=== PATIENT | male | born 1955 | race Two or more races ===

== ENCOUNTER 2022-04-13 19:19 | Emergency (ER) | payer SELFPAY ==
[~2022-04-13] VITALS: Ht 165.1 cm; Wt 86.0 kg
[2022-04-13] MEDS ORDERED: HYDROcodone/APAP 5/325MG 1 TAB TABLET PO ONE (20:15)
[2022-04-13] MEDS ORDERED: LIDOCAINE WITH 8.4% SOD BICARB 3 ML DISP.SYRIN. INJ ONE (20:15)
[2022-04-13 20:34] VITALS: BP 134/94
--- NOTE | 2022-04-13 20:37 | PHYS DOC ---
Past Medical History Past Surgical History: No Surgical History Smoking Status: Never Smoker Alcohol Use: Occasionally General Adult EDM: Chief Complaint: ANIMAL BITE HPI: HPI: Patient is a 66 year old male who presents to the ED today to be evaluated for dog bites on the right abdomen. Patient states he got bit by a dog in the neighborhood. He states during the attack he fell down. He is complaining of posterior head pain and low back pain. Rates the pain as mild and intermittent. Denies any neck pain. States the pain is exacerbated on certain movements of the low back as well as touching his posterior head. Denies any loss of consciousness. Animal control was notified as well as PD. Review of Systems: Review of Systems: constitutional: Denies fever or chills. [] Eyes: Denies change in visual acuity. [] HENT: Denies nasal congestion or sore throat. [] Respiratory: Denies cough or shortness of breath. [] Cardiovascular: Denies chest pain or edema. [] GI: Denies abdominal pain, nausea, vomiting, bloody stools or diarrhea. [] : Denies dysuria. [] Musculoskeletal: Reports low back pain Integument: Reports dog bites to the abdomen Neurologic: Reports posterior head pain denies headache, focal weakness or sensory changes. [] Psychiatric: Denies depression or anxiety. [] Heart Score: C/O Chest Pain: N/A Risk Factors: Risk Factors: DM, Current or recent (<one month) smoker, HTN, HLP, family histo ry of CAD, obesity. Risk Scores: Score 0 - 3: 2.5% MACE over next 6 weeks - Discharge Home Score 4 - 6: 20.3% MACE over next 6 weeks - Admit for Clinical Observation Score 7 - 10: 72.7% MACE over next 6 weeks - Early Invasive Strategies Current Medications: Current Medications Medications (Trade) Dose Ordered Sig/Raisa Start Time Stop Time Status Last Admin Dose Admin Acetaminophen/ Hydrocodone Bitart (Lortab 5/325) 1 tab 1X ONCE 04/13/22 20:15 04/13/22 20:24 DC 04/13/22 20:19 1 TAB Lidocaine HCl (Buffered Lidocaine 1%) 3 ml 1X ONCE 04/13/22 20:15 04/13/22 20:16 DC 04/13/22 20:19 3 ML Allergies: Allergies: Allergies Coded Allergies Type Severity Reaction Last Updated Verified No Known Drug Allergies 04/13/22 No Physical Exam: PE: Constitutional: Well developed, well nourished, no acute distress, non-toxic appearance. [] HENT: Normocephalic, atraumatic, bilateral external ears normal, oropharynx moist, no oral exudates, nose normal. [] Eyes: PERRLA, EOMI, conjunctiva normal, no discharge. [] Neck: Normal range of motion, no tenderness, supple, no stridor. [] Cardiovascular:Heart rate regular rhythm, no murmur [] Lungs & Thorax: Bilateral breath sounds clear to auscultation [] Abdomen: Bowel sounds normal, soft, no tenderness, no masses, no pulsatile masses. [] Skin: Right abdomen with multiple scratch belle, bruising noted on posterior scalp, bruising noted on bilateral elbows Back: Diffuse paraspinal muscle tenderness bilateral lumbar spine including midline lumbar spine tenderness, no CVA tenderness. [] Extremities: No tenderness, no cyanosis, no clubbing, ROM intact, no edema. [] Neurologic: Alert and oriented X 3, normal motor function, normal sensory function, no focal deficits noted. Cranial nerves II through XII Psychologic: Affect normal, judgement normal, mood normal. [] Current Patient Data: Vital Signs: Vital Signs Date Time Temp Pulse Resp B/P (MAP) Pulse Ox O2 Delivery O2 Flow Rate FiO2 04/13/22 20:19 16 99 Room Air 04/13/22 19:45 98.4 87 173/90 (117) 98.4 EKG: EKG: [] Radiology/Procedures: Radiology/Procedures: []PROCEDURE: LUMBAR SPINE 2-3V Exam: Lumbar spine 3 views INDICATION: Fall, lower back pain TECHNIQUE: Frontal and lateral views lumbar spine with spot magnification view of the lumbosacral junction Comparisons: None FINDINGS: Compression fracture of the L1 vertebral body with less than 25% height loss. Vertebral body alignment is well maintained. Multilevel spondylotic changes lumbar spine with mild degenerative disc disease greatest at L4-L5 and L5-S1. There is bilateral facet arthropathy noted greater in the lower lumbar spine. Visualized paraspinal soft tissues are unremarkable. IMPRESSION: Compression fracture of the L1 vertebral body with less than 25% height loss, appears acute. Electronically signed by: Nesha Flores MD (04/13/2022 9:09 PM) [facility] DICTATED and SIGNED BY: NESHA FLORES MD DATE: 04/13/222104 PROCEDURE: CT HEAD WO CONTRAST Exam: CT head INDICATION: Fall, head injury TECHNIQUE: Sequential axial images through the head were obtained without the administration of IV contrast. Exposure: One or more of the following in the visualized dose reduction techniques were utilized for this examination: 1. Automated exposure control 2. Adjustment of the MA and/or KV according to patient size 3. Use of iterative of reconstructive technique Comparisons: None FINDINGS: No focal parenchymal lesion or hemorrhage is identified. There is no midline shift or sulcal effacement. Mild patchy hypodensity in the periventricular white matter. No acute vascular territory infarction is identified. Art-white distinction is preserved. The ventricular system is within normal limits without compression hydrocephalus. The basal cisterns are well maintained. The visualized portions of the paranasal sinuses and mastoid air cells are well- pneumatized. No acute fractures. IMPRESSION: No traumatic acute intracranial abnormality. Electronically signed by: Nesha Flores MD (04/13/2022 9:05 PM) [facility] DICTATED and SIGNED BY: NESHA FLORES MD DATE: 04/13/222100 Course & Med Decision Making: Course & Med Decision Making Pertinent Labs and Imaging studies reviewed. (See chart for details) This a 66-year-old male patient presented to the ED today to be evaluated after being attacked by a neighborhood dog. Patient has bruises on the right abdomen, bilateral elbows. Also has a bruise on the back of the head from falling. Complaining of head and low back pain. Tetanus updated.CT of the head is negative for any acute findings, CT of the lumbar spine noted for compression fracture of the L1 vertebral body. Provided patient a neuro surgeon to follow-up with. Discharged with Augmentin. Provided wound care instructions and return precautions. Dragon Disclaimer: Dragon Disclaimer: This electronic medical record was generated, in whole or in part, using a voice recognition dictation system. Departure Departure Impression: Primary Impression: Fall from standing Qualified Codes: W19.XXXA - Unspecified fall, initial encounter Additional Impressions: Compression fx, lumbar spine Qualified Codes: S32.010A - Wedge compression fracture of first lumbar vertebra, initial encounter for closed fracture Dog bite of abdomen Head contusion Qualified Codes: S00.03XA - Contusion of scalp, initial encounter Disposition: HOME / SELF CARE / HOMELESS Condition: STABLE Referrals: NO PCP (PCP) follow up with your docto in one week YANELI DURAN MD call his office tomorrow and set up a folllow up appointment Patient Instructions: Animal Bite, [id number], Back, Compression Fracture Additional Instructions: You were evaluated in the emergency room. Your CT of the head is negative for any acute findings, your CT of the lumbar spine was noted for L1 compression fracture. Please contact the provided neurosurgeon and follow-up. Your abdomen has dog bites. Wash them with soap and water and apply Neosporin to the area twice a day for 7 days. Take the prescribed antibiotics until completed. Please follow-up with your primary care doctor in 1 week Scripts Hydrocodone Bit/Acetaminophen (HYDROCODONE-APAP 5-325 ) 1 Tab Tablet 1 TAB PO PRN Q6HRS PRN for PAIN, #14 TAB 0 Refills Prov: EMRE PADILLA APRN 04/13/22 Amoxicillin/Potassium Clav (AUGMENTIN 875-125 TABLET) 1 Each Tablet 1 TAB PO BID for 10 Days, #20 TAB 0 Refills Prov: EMRE PADILLA APRN 04/13/22 EMRE PADILAL APRN April 13, 2022 20:37
[2022-04-13] MEDS ORDERED: DIPHTH,PERTUSS(ACELL),TET TOX 0.5 ML DISP.SYRIN. VAX IM ONE (20:45)
--- NOTE | 2022-04-13 21:07 | RAD ---
Exam: CT head INDICATION: Fall, head injury TECHNIQUE: Sequential axial images through the head were obtained without the administration of IV co ntrast. Exposure: One or more of the following in the visualized dose reduction techniques were utilized for this examination: 1. Automated exposure control 2. Adjustment of the MA and/or KV according to patient size 3. Use of iterative of reconstructive technique Comparisons: None FINDINGS: No focal parenchymal lesion or hemorrhage is identified. There is no midline shift or sulcal effaceme nt. Mild patchy hypodensity in the periventricular white matter. No acute vascular territory infarction i s identified. Art-white distinction is preserved. The ventricular system is within normal limits without compression hydrocephalus. The basal cisterns are well maintained. The visualized portions of the paranasal sinuses and mastoid air cells are well-pneumatized. No acute fractures. IMPRESSION: No traumatic acute intracranial abnormality. Electronically signed by: Nesha Miranda MD (04/13/2022 9:05 PM) [facility]
--- NOTE | 2022-04-13 21:11 | RAD ---
Exam: Lumbar spine 3 views INDICATION: Fall, lower back pain TECHNIQUE: Frontal and lateral views lumbar spine with spot magnification view of the lumbosacral roberto ction Comparisons: None FINDINGS: Compression fracture of the L1 vertebral body with less than 25% height loss. Vertebral body alignmen t is well maintained. Multilevel spondylotic changes lumbar spine with mild degenerative disc disease greatest at L4-L5 and L5-S1. There is bilateral facet arthropathy noted greater in the lower lumbar spine. Visualized paraspinal soft tissues are unremarkable. IMPRESSION: Compression fracture of the L1 vertebral body with less than 25% height loss, appears acute. Electronically signed by: Nesha Miranda MD (04/13/2022 9:09 PM) [facility]
[2022-04-13] MEDS ORDERED: HYDR-2761 PO ×2 (22:02→22:15)
[2022-04-13] MEDS ORDERED: AMOX1TAB61 PO ×2 (22:02→22:15)
== END 2022-04-13 22:17 | disposition home or self-care (01) ==
LOC: ER 19:19
DX: S32.010A Wedge compression fracture of first lumbar vertebra, initial encounter for closed fracture (principal); S00.03XA Contusion of scalp, initial encounter; R51.9 Headache, unspecified; M54.2 Cervicalgia; M54.50 Low back pain, unspecified; W54.0XXA Bitten by dog, initial encounter; Y93.89 Activity, other specified; Y92.89 Other specified places as the place of occurrence of the external cause; Y99.8 Other external cause status
CPT/HCPCS: 70450; 72100; 90471; 90715; 99284; J3490